=== PATIENT | female | born 1985 | race African-American/Black ===

== ENCOUNTER 2023-11-22 05:10 | Emergency (ER) | payer OTHER ==
[~2023-11-22] VITALS: Ht 162.6 cm; Wt 68.0 kg
[2023-11-22 05:13] VITALS: O2SAT 99
[2023-11-22] MEDS: HALOPERIDOL LACTATE 5MG/ML VIAL IM STA (05:24)
[2023-11-22] MEDS: LORAZEPAM 2MG/ML INJ IM STA (05:24)
[2023-11-22] MEDS: DIPHENHYDRAMINE 50MG/ML VIAL IM STA (05:24)
[2023-11-22 06:14] LABS: CLARITY URINE CLEAR (CLEAR); COLOR URINE YELLOW (YELLOW); GLUCOSE URINE NEGATIVE (NEGATIVE); KETONES URINE NEGATIVE (NEGATIVE); LEUKOCYTE ESTERASE URINE NEGATIVE (NEGATIVE); NITRITE URINE NEGATIVE (NEGATIVE); OCCULT BLOOD URINE TRACE (NEGATIVE); PH URINE 6.5 (4.5-8.0); PROTEIN URINE NEGATIVE (NEGATIVE); SPECIFIC GRAVITY URINE 1.002 (1.005-1.030); UROBILINOGEN URINE 0.2 E.U./dL (0.2-1.0)
[2023-11-22 06:23] LABS: *AMPHETAMINES SCREEN URINE PRESUMPTIVE POSITIVE (NEGATIVE); *BARBITURATES SCREEN URINE NEGATIVE (NEGATIVE); *BENZODIAZEPINES SCREEN URINE NEGATIVE (NEGATIVE); *COCAINE SCREEN URINE NEGATIVE (NEGATIVE); CANNABINOID URINE SCREEN PRESUMPTIVE POSITIVE (NEGATIVE); ECSTASY MDMA SCREEN URINE NEGATIVE (NEGATIVE); METHADONE URINE SCREEN NEGATIVE (NEGATIVE); OPIATES URINE SCREEN NEGATIVE (NEGATIVE); PHENCYCLIDINE URINE SCREEN NEGATIVE (NEGATIVE)
[2023-11-22 06:55] LABS: BACTERIA URINE NONE SEEN; RBC URINE NONE SEEN /hpf (0-2); SQUAMOUS EPITHELIAL CELL URINE NONE SEEN /lpf (RARE/1+); WBC URINE 0-2 /hpf (0-2)
[2023-11-22 09:04] LABS: BASOPHILS % 0.5 % (0.0-2.0); EOSINOPHILS % 1.2 % (0.0-5.0); HEMATOCRIT. 29.6 % (36.0-48.0); HEMOGLOBIN. 9.8 g/dL (12.0-16.0); LYMPHOCYTES % 31.6 % (20.0-50.0); MEAN CORPUSCULAR HEMOGLOBIN 29.5 pg (28.0-32.0); MEAN CORPUSCULAR VOLUME 89.3 fL (81.0-99.0); MEAN PLATELET VOLUME 9.3 fl (7.4-10.4); MONOCYTES % 11.5 % (2.0-8.0); NEUTROPHILS % 55.2 % (40.0-76.0); PLATELET 214 x1000/uL (130-400); RED BLOOD CELL COUNT 3.31 mill/uL (4.2-5.4); RED CELL DISTRIBUTION WIDTH 16.4 % (11.6-14.6); WHITE BLOOD COUNT 7.5 x1000/uL (4.5-11.0)
[2023-11-22 09:14] LABS: CHLORIDE 112 mEq/L (98-107); SODIUM 145 mEq/L (136-145)
[2023-11-22 09:15] LABS: CALCIUM 8.6 mg/dL (8.7-10.4); CARBON DIOXIDE 27 mEq/L (21-32)
[2023-11-22 09:20] LABS: CREATININE 0.7 mg/dL (0.6-1.0); GLUCOSE 82 mg/dL (70-105); UREA NITROGEN BLOOD 7 mg/dL (9-23)
[2023-11-22 09:36] LABS: ETHANOL BLOOD < 10 mg/dL (<10)
[2023-11-22] MEDS: POTASSIUM CHLORIDE 20MEQ/PACKET PO ONE (15:20)
[2023-11-23] MEDS: OLANZAPINE 5MG TABLET ODT PO SCH (16:21)
[2023-11-25] MEDS: LORAZEPAM 2MG/ML INJ IM ONE (14:58)
[2023-11-25] MEDS: HALOPERIDOL LACTATE 5MG/ML VIAL IM ONE (14:58)
[2023-11-26] MEDS ORDERED: OLAN5TAB6 MT (09:42)
[2023-11-26 10:21] VITALS: BP 128/76; PULSE 68; RESP 17; TEMP 98.3
== END 2023-11-26 10:00 | disposition home or self-care (01) ==
LOC: EDBD 05:10 → ER 05:10
DX: R45.1 Restlessness and agitation (principal); R51.9 Headache, unspecified; Z20.822 Contact with and (suspected) exposure to COVID-19
CPT/HCPCS: 80305; 80048; 81003; 81025; 80320; 85025; 36415; 70450; 96372 ×2; 99291; 87426; J1200; J1630 ×2; J2060 ×2; G0480